=== PATIENT | female | born 1980 | race Caucasian/White ===

== ENCOUNTER 2024-09-11 06:08 | Emergency (ER) | payer SELFPAY ==
[~2024-09-11] VITALS: Ht 165.1 cm; Wt 55.0 kg
[2024-09-11 06:12] VITALS: O2SAT 99
[2024-09-11] MEDS: ONDANSETRON 4MG ODT PO ONE (07:25)
[2024-09-11] MEDS: MORPHINE SULFATE 4 MG/ML INJ (FOR IV/IM USE) IM ONE (07:25)
[2024-09-11] MEDS ORDERED: CELE100C MT (11:00)
[2024-09-11] MEDS ORDERED: OXYC-100 MT (11:00)
[2024-09-11] MEDS: HYDROCODONE/ACETAMINOPHEN 5/325MG TABLET PO STA (11:13)
[2024-09-11 11:16] VITALS: BP 101/64; PULSE 68; RESP 13; TEMP 36.7; O2SAT 100
== END 2024-09-11 11:44 | disposition home or self-care (01) ==
LOC: ER 06:08
DX: S80.01XA Contusion of right knee, initial encounter (principal); S50.02XA Contusion of left elbow, initial encounter; M54.50 Low back pain, unspecified; X58.XXXA Exposure to other specified factors, initial encounter; Y93.89 Activity, other specified; Y92.89 Other specified places as the place of occurrence of the external cause; Y99.8 Other external cause status
CPT/HCPCS: 72100; 73060; 73090; 73560; 96372; 99284; Q0162; J2270; Z7610 ×4; A4606